=== PATIENT | female | born 1975 | race Caucasian/White ===

== ENCOUNTER → 2019-08-23 | Day surgery (SDC) | payer BC ==
[~2019-08-23] VITALS: Ht 162.5 cm; Wt 65.8 kg
[~2019-08-23] MED LIST: SUBOXONE 2 MG-1 EACH SL; Synthroid,Levo50 MCG PO; THEOPHYLLINE300 M2 PO; WELLBUTRIN SR150 MG PO; WELLBUTRIN XL300 MG PO
--- NOTE | ~2019-08-23 | O ---
[place], [place] OPERATIVE NOTE NAME: CAROLINE RAM UNIT #: [id number] ROOM: DOCTOR: JOSE KWOK MD BIRTHDATE: [birth year] DOS: 08/23/2019 PROCEDURES: 1. Esophagogastroduodenoscopy and biopsy. 2. Colonoscopy. INDICATION: Nausea, abdominal pain and change in bowel habits. An informed consent was obtained from the patient after indication of procedures, the alternatives and potential complications were explained to her. PROCEDURE MEDICATION: Sedation was administered by Anesthesiology Department. Scope used was Olympus pediatric colonoscope variable stiffness GIF-180, depth of insertion with upper endoscopy was to the descending duodenum, with the colonoscopy was to the cecum, which was identified by the usual landmarks, appendiceal orifice, ileocecal valve and triangular fold, in addition to transillumination in the right lower quadrant. FINDINGS: After adequate sedation, the patient was placed in left lateral decubitus position. Upper endoscopy was performed first. Scope was introduced under direct visualization through the upper esophageal sphincter into the esophagus. Esophageal mucosa appeared normal with no ulcerations or strictures. Lower esophageal sphincter was identified at 34 cm from incisors. The stomach was then intubated. Gastric mucosa inspected. Atrophic gastritis was seen with no discrete ulcers or active bleeding. A MIKE test was performed from the gastric antrum and body. Retroflexed views in the fundus were unremarkable. Pylorus was intubated easily. The duodenal bulb and descending duodenum were within normal range. The scope was then withdrawn after the stomach was decompressed. We then proceeded to colonoscopy. Rectal examination showed diminished sphincter tone and no external hemorrhoids. Scope was introduced into the rectum, then advanced to the cecum with no difficulty. The prep was adequate except for the cecum where we had poor prep. The colon mucosa appeared normal with no evidence of polyps, diverticular or ulcerations. Retroflexed views in the rectum showed grade 1 internal hemorrhoids. The scope was then withdrawn after the rectum was decompressed. The patient tolerated the procedures well. IMPRESSION: 1. Atrophic gastritis, MIKE test performed. 2. Normal upper gastrointestinal tract, otherwise. 3. Normal colon mucosa with no polyp seen. PLAN: We will review the MIKE test results and treat the patient accordingly. Office followup will be scheduled in 2-3 weeks. [place], [place] OPERATIVE NOTE NAME: CAROLINE RAM UNIT #: [id number] ROOM: DOCTOR: JOSE KWOK MD BIRTHDATE: [birth year] JOSE KWOK MD CM:OPRECORD:OPERATIVE NOTE 3 JOSE KWOK MD 08/23/19901 interface
[2019-08-23 07:19] VITALS: BP 128/65
[2019-08-23 08:43] VITALS: BP 94/64
[2019-08-23 08:58] VITALS: BP 108/73
[2019-08-23 09:09] VITALS: BP 124/85
== END | disposition home or self-care (01) ==
LOC: SDC 08-16 08:00
DX: K59.00 Constipation, unspecified (principal); K29.40 Chronic atrophic gastritis without bleeding; K64.0 First degree hemorrhoids; J45.909 Unspecified asthma, uncomplicated; F41.9 Anxiety disorder, unspecified; E53.8 Deficiency of other specified B group vitamins; F32.9 Major depressive disorder, single episode, unspecified; F17.210 Nicotine dependence, cigarettes, uncomplicated; R19.8 Other specified symptoms and signs involving the digestive system and abdomen; Z98.51 Tubal ligation status; Z88.0 Allergy status to penicillin; Z98.890 Other specified postprocedural states; Z79.899 Other long term (current) drug therapy; Z80.0 Family history of malignant neoplasm of digestive organs